=== PATIENT | male | born 2000 | race Caucasian/White ===

== ENCOUNTER 2025-05-14 03:10 | Emergency (ER) | payer BC, SELFPAY ==
[2025-05-14 03:10] VITALS: BMI 36.3
[2025-05-14 03:12] VITALS: BP 137/96
[2025-05-14 03:30] VITALS: BP 125/78
[2025-05-14 03:57] LABS: COVID-19 Antigen Positive (Negative)
[2025-05-14 04:00] VITALS: BP 130/67
--- NOTE | 2025-05-14 04:30 | ED.GENMED ---
History of Present Illness
General
Chief Complaint: Abdominal Symptoms
Source: patient, family (Girlfriend at bedside) and previous hospital records (Prior hospitalization 2020 when patient presented with bilateral lower extremity weakness. Concern for Guillain-Galeano� syndrome, transverse myelitis. Workup completely
negative and there was concern for conversion disorder.)
Exam Limitations: none
Time Seen by Provider: 05/14/25 04:16
Nursing documentation reviewed up to this point in time: agreed with
History of Present Illness
History of Present Illness:
The patient is a 24-year-old male who tested positive for COVID-19 on following exposure from an acquaintance who also tested positive. At the time of the test, the patient was asymptomatic. Symptoms began to manifest today and include
subjective fever, general malaise, and nasal congestion. He also notes some shortness of breath, few episodes of vomiting tonight as well as passing 3 loose stools. He denies hematemesis nor hematochezia. Admits to overall 'feeling crappy.' Mild
sore throat. He has been drinking fluids throughout the day. Urinating normally. He reports not having a cough presently. The symptoms developed progressively throughout the day, leading to the current state of distress.
He takes no medicines on a daily basis.
Prior hospitalization 2020 for bilateral lower extremity weakness. There was initial concern for Guillain-Galeano�, transverse myelitis, acute inflammatory demyelinating polyneuropathy however workup was negative including unremarkable MRI of the
brain, cervical thoracic and lumbar spine. Unremarkable lumbar puncture. Unremarkable EMG/nerve conduction study. Symptoms promptly improved after IVIG infusions and there was concern for possible conversion disorder. No recurrent episodes.
Past History
Past History
ED Past Medical History: None
ED Past Surgical History: None
Patient has exhibited threatening behavior?: No
Social History
Tobacco: Non-smoker
Alcohol: Occasional
Drug: None
Personal: Single
Living: with family
Family History
Family History: Other (reviewed and non-contributory)
Phy Exam
Physical Exam
Physical Exam:
GENERAL: 24-year-old male appears his stated age, awake and alert, mildly ill in appearance. Easily communicative. Mild nasal, stuffy voice. He is febrile 101.5 �F.
EYE: pupils equal and reactive. anicteric
NECK: Supple, nontender, no meningismus, no significant adenopathy.
ENT: posterior pharynx is clear, oral mucosa is moist. TM clear b/l, mildly boggy turbinates with scant clear rhinorrhea.
CARDIAC: Regular rhythm, mildly tachycardic. no murmur.
LUNGS: Clear breath sounds bilaterally, no acute respiratory distress, no wheezes/rales/rhonchi
ABDOMEN: Soft, nondistended, without focal tenderness, no r/g, no cvat. normoactive BS.
NEUROLOGICAL: Alert and oriented x3, no focal neuro deficits. Gait is fatima and steady.
SKIN: Mildly hot to touch and dry, normal color, skin intact. No rash.
MUSCULOSKELETAL: No C/C/E. peripheral pulses are full and equal b/l. No palpable tenderness.
PSYCH: Normal and appropriate interaction.
Course
Orders/Labs/Results
Orders:
Orders
05/14/25 03:37
COVID-19 Antigen Urgent
Source: Nasal Swab
05/14/25 04:29
Acetaminophen [Tylenol] 1,000 mg PO NOW STA
Ibuprofen [Motrin] 600 mg PO NOW STA
Ondansetron Orally Disint [Zofran Odt (Orally Disintegrating)] 4 mg PO NOW STA
Abnormal Lab Results
05/14/25
03:37
SARS-CoV-2 Antigen Positive A
(Negative)
Vital Signs
Temp: 101.5 F
Initial and Last Documented VS:
Initial Vital Signs
Temp Pulse Resp BP Pulse Ox
97.9 F 122 22 137/96 99
05/14/25 03:12 05/14/25 03:12 05/14/25 03:12 05/14/25 03:12 05/14/25 03:12
Last Documented Vital Signs
Temp Pulse Resp BP Pulse Ox
98.4 F 122 22 125/78 96
05/14/25 05:27 05/14/25 03:12 05/14/25 03:12 05/14/25 03:30 05/14/25 04:32
MDM/Problems Addressed
Differential Diagnosis Includes:
The Differential Diagnosis includes, in no particular order and is not limited to:
1. COVID-19 infection
2. Influenza
3. Acute viral rhinopharyngitis
4. Sinusitis
5. Allergic rhinitis
6. Viral pharyngitis
7. Bacterial pharyngitis
8. Mononucleosis
9. Strep throat
10. Pneumonia
MDM/Problems Addressed:
Patient presents with acute febrile illness, nasal congestion, myalgias. Tested positive for COVID 4 days ago but symptoms began yesterday evening.
COVID antigen again is positive.
Reports few episodes of vomiting and diarrhea but abdomen is soft without appreciable tenderness and clinically appears euvolemic.
Although febrile he is hemodynamically stable.
Will give a dose of Zofran for nausea and plan for an oral dose of antipyretics.
If tolerated will initiate oral fluids and will plan to initiate Paxlovid for COVID.
At this point no indication for laboratory studies nor imaging.
*Pulse Oximetry
SaO2: 96
Oxygen Mode of Delivery: Room air
Patient hypoxic: no
*Bird Keeper Interpretation
Rate: tachycardiac
Interpretation: abnormal
Rhythm: sinus
*Critical Care Note
Total Time (30-74mins, 75-104mins- exclusive of procedures): Not Applicable
Update Note
Update Note:
06:00
Patient feeling markedly improved after Zofran, Tylenol, ibuprofen.
No further nausea or vomiting, tolerating oral fluids. Fever is dissipating.
Will discharge to home with prescription for Paxlovid to be initiated today.
Recommend continuing ibuprofen versus Tylenol as needed for fever, aches.
Discussed importance of staying well-hydrated on a daily basis.
Home quarantine until fever free for 24 hours.
ED Attending Note
-
Portions of this chart may have been created with voice recognition software.� Occasional wrong word or��sound alike� substitutions may have occurred due to the inherent limitations of voice recognition software.
Discharge Plan
Departure
Patient Disposition: Home (Routine Discharge)
Date of Disposition: 05/14/25
Time of Disposition: 06:05
Patient with high blood pressure during this ER visit?: No
Condition: Good
Covid-19: Confirmed COVID-19
Discharge Problem:
Acute COVID URI
Instructions: COVID-19 in adults - ED (DC)
Prescriptions:
New
Paxlovid 300 mg (150 mg x 2)-100 mg tablets,dose pack
See Rx Instructions .ROUTE .COMPLEX Qty: 30 0RF
Rx Instructions:
take TWO 150 mg tablets of nirmatrelvir with ONE 100 mg tablet of ritonavir twice daily for 5 days
No Action
cyanocobalamin (vitamin B-12) 1,000 MCG tablet
1,000 mcg PO DAILY Qty: 30 0RF
Referrals:
NONE,* [Family Provider, Internal Medicine] - Call in 1-3 days for appt
Interventions
Interventions:
*Risk Screen - Suicide Last Done: 05/14/25 03:12
*General Assessment Last Done: 05/14/25 03:12
*Neglect/Abuse Screening Last Done: 05/14/25 03:12
*ED COVID-19 Vaccine History Last Done: 05/14/25 03:12
OH-Vgnqaj-Knkgfayloi Assessment Last Done: 05/14/25 03:39
ED- Cardiac Assessment Last Done: 05/14/25 03:39
ED- Pulmonary Assessment Last Done: 05/14/25 03:39
Discharge Date and Time
Print Language: UPPER SORBIAN
[2025-05-14] MEDS: ZOFRAN ODT (ORALLY DISINTEGRATING) 4 MG PO (04:38)
[2025-05-14] MEDS: TYLENOL 1000 MG PO (04:38)
[2025-05-14] MEDS: MOTRIN 600 MG PO (04:38)
== END 2025-05-14 06:17 | disposition home or self-care (01) ==
LOC: EMR 03:10
PROVIDERS: EMERGENCY PHYSICIAN Emergency Medicine
DX: U07.1 COVID-19 (principal); R11.0 Nausea
CPT/HCPCS: 99283; 87811